=== PATIENT | male | born 1975 | race Two or more races ===

== ENCOUNTER 2024-08-27 16:32 | Inpatient (IN) | payer MEDICAID, OTHER ==
[~2024-08-27] VITALS: Ht 167.6 cm; Wt 118.2 kg
[~2024-08-27 16:32] MED LIST: BUPR150T18 PO; CLON0.5T4 PO; ESCI5TAB PO; LISI-285 PO; PROP80CA PO; QUET100T47 PO
[2024-08-27] MEDS: dilTIAZem 25 MG/5 ML VIAL IV ONE (16:37)
[2024-08-27] MEDS: SODIUM CHLORIDE 0.9% 1,000 ML IV ONE (16:38)
--- NOTE | 2024-08-27 16:43 | ED.PDOC ---
HPI Comments 48y M who presents to the ED for chief complaint of chest pain. Pt states he was driving earlier this afternoon and states he started having chest pain. Pt states he pulled over and took his BP medication, propanolol and went to urgent care as he continued to have chest pain ever after taking his medications. At urgent Care, the patient was noted to be tachycardic, diaphoretic and hypotensive, so was transferred to the ED. Patient localizes the chest pain to the retrosternal area, constant, with no associated exacerbating or relieving factors associated with throbbing palpitations. Pt denies other associated symptoms at this time. He denies any history of cardiac arrhythmia. Chief Complaint: chest pain Time Seen by MD: 16:40 Reviewed Notes: Medications Allergies: Coded Allergies: NO KNOWN ALLERGIES (Unverified , 08/27/24) Information Source: Patient, Spouse Mode of Arrival: Ambulatory Brought in by: spouse Past Medical History PAST MEDICAL HISTORY: HTN Past Medical History (Other): bowel obstruction Surgical History (Other): colostomy Family History Family History: Unknown Social History Smoker: Non-Smoker Alcohol: Denies ETOH Use Drugs: Denies Drug Use Lives In: Home Constitutional: denies: chills, diaphoresis, fatigue, fever, malaise, sweats, weakness, others EENTM: denies: blurred vision, double vision, ear bleeding, ear discharge, ear drainage, ear pain, ear ringing, eye pain, eye redness, hearing loss, mouth pain, mouth swelling, nasal discharge, nose bleeding, nose congestion, nose pain, photophobia, tearing, throat pain, throat swelling, voice changes, others Respiratory: denies: cough, hemoptysis, orthopnea, SOB at rest, shortness of breath, SOB with excertion, stridor, wheezing, others Cardiovascular: reports: chest pain; denies: dizzy spells, diaphoresis, Dyspnea on exertion, edema, irregular heart beat, left arm pain, lightheadedness, palpitations, PND, syncope, others Gastrointestinal: denies: abdomen distended, abdominal pain, blood streaked bowels, constipated, diarrhea, dysphagia, difficulty swallowing, hematemesis, melena, nausea, poor appetite, poor fluid intake, rectal bleeding, rectal pain, vomiting, others Genitourinary: denies: burning, dysuria, flank pain, frequency, hematuria, incontinence, penile discharge, penile sore, pain, testicle pain, testicle swelling, urgency, others Neurological: denies: dizziness, fainting, headache, left sided numbness, left sided weakness, numbness, paresthesia, pre-existing deficit, right sided numbness, right sided weakness, seizure, speech problems, tingling, tremors, weakness, others Musculoskeletal: denies: back pain, gout, joint pain, joint swelling, muscle pain, muscle stiffness, neck pain, others Integumetry: denies: bruises, change in color, change in hair/nails, dryness, laceration, lesions, lumps, rash, wounds, others Allergic/Immunocompromised: denies: Difficulty Healing, Frequent Infections, Hives, Itching, others Hematologic/Lymphatic: denies: anemia, blood clots, easy bleeding, easy bruising, swollen glands, others Endocrine: denies: excessive hunger, excessive sweating, excessive thirst, excessive urination, flushing, intolerance to cold, intolerance to heat, unexplained weight gain, unexplained weight loss, others Psychiatric: denies: anxiety, bipolar disorder, depression, hopeless, panic disorder, schizophrenia, sleepless, suicidal, others All Other Systems: Reviewed and Negative Physical Exam General Appearance: Mild Distress, Obese HEENT: Other (+symmetric, no facial asymmetry, moist mucous membranes) Neck: Full Range of Motion, Normal Inspection Respiratory: Lungs Clear, No Accessory Muscle Use, No Respiratory Distress, Normal Breath Sounds, Other (Tachypneic) Cardiovascular: No Edema, No JVD, Tachycardia Breast Exam: Deferred Gastrointestinal: Non Tender, Soft Genitalia: Deferred Pelvic: Deferred Rectal: Deferred Extremities: Normal inspection, Normal range of motion, Non-tender, No pedal edema Neurologic: Alert (Oriented x4), Normal Affect, Normal Mood, Other (Moves all extremities, no gross focal deficit) Cerebellar Function: NOT DONE Reflexes: NOT DONE Skin: Diaphoresis, Dry, Normal Color Lymphatic: NOT DONE EKG EKG #1: Comments Sinus tach versus SVT, rate 169, normal QRS interval, QTC prolonged at 514, right axis deviation, possible old inferior infarct, no ST/T changes. EKG #2: Comments Sinus rhythm, rate 72, normal RI and QRS intervals, QTC 467, possible old inferior infarct, no ST/T changes. Was a procedure done? Was a procedure done?: No CP Differential Dx Differential Diagnosis: A-fib, A-Flutter, Angina, Anxiety / Panic Attack, Atrial Dysrhythmia, Electrolyte Disorder, IL, PSVT, Pulmonary Embolus Other Differential Diagnosis acute coronary syndrome Differential Diagnosis: CHF Differential Diagnosis: Angina, Chest Wall Pain, Myocardial Infarction, Pericarditis, Pneumonia X-Ray, Labs, Meds, VS Vital Signs Date Time Temp Pulse Resp B/P (MAP) Pulse Ox O2 Delivery O2 Flow Rate FiO2 08/27/24 20:00 57 08/27/24 19:11 96.7 59 11 137/80 (99) 99 96.7 08/27/24 19:11 99 Nasal Cannula* 2 28 08/27/24 17:01 Room Air* 0 21 08/27/24 16:47 72 08/27/24 16:32 169 08/27/24 16:32 96.7 170 18 95/69 (78) 98 Lab Test 08/27/24 19:27 08/27/24 16:35 Range/Units Troponin I High Sensitivity 84 *H 4 </=54 ng/L White Blood Count 14.8 H 4.4-10.8 10^3/uL Red Blood Count 6.07 H 4.5-5.90 10^6/uL Hemoglobin 17.7 H 13.5-17.5 g/dL Hematocrit 52.1 41.0-53.0 % Mean Corpuscular Volume 85.8 80.0-100.0 fL Mean Corpuscular Hemoglobin 29.2 28.0-32.0 pg Mean Corpuscular Hemoglobin Concent 34.0 32.0-36.0 g/dL Red Cell Distribution Width 13.4 11.8-14.3 % Platelet Count 363 140-450 10^3/uL Mean Platelet Volume 9.9 6.9-10.8 fL Neutrophils (%) (Auto) 71.1 37.0-80.0 % Lymphocytes (%) (Auto) 19.9 10.0-50.0 % Monocytes (%) (Auto) 6.6 0.0-12.0 % Eosinophils (%) (Auto) 1.6 0.0-7.0 % Basophils (%) (Auto) 0.8 0.0-2.0 % Neutrophils # (Auto) 10.5 H 1.6-8.6 10 ^3/uL Lymphocytes # (Auto) 2.9 0.4-5.4 10 ^3/uL Monocytes # (Auto) 1.0 0-1.3 10 ^3/uL Eosinophils # (Auto) 0.2 0-0.8 10 ^3/uL Basophils # (Auto) 0.1 0-0.2 10 ^3/uL Nucleated Red Blood Cells 0.8 % Sodium Level 140 136-145 mmol/L Potassium Level 4.1 3.5-5.1 mmol/L Chloride Level 106 98-107 mmol/L Carbon Dioxide Level 23 20-31 mmol/L Anion Gap 11 5-15 Blood Urea Nitrogen 16 9-23 mg/dL Creatinine 0.94 0.700-1.30 mg/dL Glomerular Filtration Rate Calc 101 >90 mL/min BUN/Creatinine Ratio 17.0 10.0-20.0 Serum Glucose 111 H 74-106 mg/dL Calcium Level 10.3 8.7-10.4 mg/dL B-Type Natriuretic Peptide 24.60 0-100 pg/mL Current Medications Medications (Trade) Dose Ordered Sig/Conner Route Start Time Stop Time Status Last Admin Sodium Chloride 1,000 ml @ 1,000 mls/hr Q1H ONCE IV 08/27/24 16:45 08/27/24 17:44 DC 08/27/24 16:38 Diltiazem HCl (Cardizem Injection) 10 mg ONCE ONCE IV 08/27/24 16:45 08/27/24 16:46 DC 08/27/24 16:37 Aspirin 325 mg ONCE ONCE PO 08/27/24 20:30 08/27/24 20:31 MD 08/27/24 20:54 [place] [id number] Ph: [phone] DIAGNOSTIC IMAGING Diagnostic Imaging Report : [id number] Signed PATIENT: LEXY POLOT: [id number] UNIT: [id number] : 1975 LOC: ER ROOM / BED: / AGE / SEX: 48 / M ADM STATUS: REG ER SERVICE [id number] ORDERING PHYSICIAN: LATRICE RODRÍGUEZ MD PROCEDURE(s): CXRP - CHEST PORTABLE REASON: cp ORDER NUMBER(s): [id number], ACCESSION NUMBER(s): [id number] EXAM: XR Chest, 1 View CLINICAL INDICATION: cp TECHNIQUE: Frontal view of the chest. COMPARISON: None FINDINGS: LUNGS AND PLEURAL SPACES: Unremarkable. No consolidation. No pneumothorax. HEART: Unremarkable. No cardiomegaly. MEDIASTINUM: Unremarkable. Normal mediastinal contour. BONES/JOINTS: Unremarkable. No acute fracture. OTHER FINDINGS: . . . IMPRESSION: No acute cardiopulmonary process. HS:Y ATED BY: AARTI MYERS MD DICTATED DATE/TIME: 08/27/241703 SIGNED BY: AARTI MYERS MD SIGNED DATE/TIME: 08/27/241703 CC: X-Ray, Labs, Meds, VS Comment 48-year-old male with a history of hypertension brought in from urgent care where he presented complaining of chest pain, was found to be tachycardic and hypotensive Vitals remarkable for temperature 96.7, heart rate 170, BP 95/69 Exam remarkable for tachycardia and diaphoresis EKG #1 Showed sinus tach versus SVT at a rate of 169, no ST/T changes EKG #2 After IV Cardizem showed sinus rhythm, rate 72, no ST/T changes Chest x-ray unremarkable CBC remarkable for WBC 14.8, hemoglobin 17.7, basic metabolic panel and BNP unremarkable. First troponin negative. Second troponin elevated at 84, 3rd troponin 161. Patient treated with the following in the ED: 1 L 0.9 normal saline IV bolus, Cardizem 10 mg IV, aspirin 325 mg p.o.. Shortly after Cardizem was administered, patient's cardiac rhythm converted to sinus rhythm at a rate in the 70s. At that point he stated his chest pain had resolved. He also notes that he may have forgotten to take his propranolol over the last 2 days. Possibly the tachycardia was a rebound response. Plan is to admit the patient for Cardiology evaluation. Time of 1ST Reevaluation: 17:10 Reevaluation 1ST: Unchanged Time of 2ND Reevaluation: 19:22 Reevaluation 2ND: Improved Patient Education/Counseling: Diagnosis, Treatment Family Education/Counseling: Diagnosis, Treatment Departure 1 Departure Time of Disposition: 19:22 Impression: Primary Impression: Acute chest pain Additional Impressions: Tachycardia Non-STEMI (non-ST elevated myocardial infarction) Disposition: 09 ADMITTED INPATIENT Admit to: Tele Condition: Guarded Critical Care Note Critical Care Time?: Yes (35 min-critical care time only) Critical care comment: Critical care time including multiple bedside re-evaluations, review of lab and imaging studies, and discussion of the case with the admitting provider. Patient is high risk for hemodynamic decompensation. Stability Stability form required: No Heart Score Heart Score: Heart Score Response (Comments) Value History Moderate Suspicious 1 EKG Repolarization Disturb 1 Age 45-64 1 Risk Factors 1 or 2 risk factors 1 Troponin 1-2 x's Normal limit 1 Total 5 I personally scribed for LATRICE RODRÍGUEZ MD ([email or web address]) on 08/27/24 at 16:43. Electronically submitted by Missy Aleman ([email or web address]). I personally scribed for LATRICE RODRÍGUEZ MD ([email or web address]) on 08/27/24 at 17:10. Electronically submitted by Missy Aleman ([facility]). LATRICE RODRÍGUEZ MD Aug 27, 2024 16:43
[2024-08-27 16:48] LABS: Basophils # (auto) 0.1 10 ^3/uL (0-0.2); Basophils % (auto) 0.8 % (0.0-2.0); Eosinophils # (auto) 0.2 10 ^3/uL (0-0.8); Eosinophils % (auto) 1.6 % (0.0-7.0); Hematocrit 52.1 % (41.0-53.0); Hemoglobin 17.7 g/dL (13.5-17.5); Lymphocytes # (auto) 2.9 10 ^3/uL (0.4-5.4); Lymphocytes % (auto) 19.9 % (10.0-50.0); Mean Corpuscular Hemoglobin 29.2 pg (28.0-32.0); Mean Corpuscular Volume 85.8 fL (80.0-100.0); Monocytes % (auto) 6.6 % (0.0-12.0); Neutrophils # (auto) 10.5 10 ^3/uL (1.6-8.6); Neutrophils % (auto) 71.1 % (37.0-80.0); Nucleated Red Blood Cells % 0.8 %; Platelet Count (auto) 363 10^3/uL (140-450); Red Blood Cells 6.07 10^6/uL (4.5-5.90); Red Cell Distribution Width 13.4 % (11.8-14.3); White Blood Cell 14.8 10^3/uL (4.4-10.8)
--- NOTE | 2024-08-27 16:49 | ECG ---
[facility] Test Date: 2024-08-27 Test Time: 16:47:36 Pat Name: SERGIO POLO Department: ER Room: 0279T Gender: M [employer]: BEAU : 1975 Requested By: EMERGENCY EMERGENCY Order Number: [id number] Reading MD: Ronaldo Hicks Measurements Intervals Dillard Rate: 72 P: 35 [place]: 148 QRS: 249 QRSD: 100 T: 19 QT: 426 QTc: 467 Interpretive Statements Sinus rhythm Left anterior fascicular block Consider right ventricular hypertrophy Baseline wander in lead(s) V1 Electronically Signed On 08-29-2024 16:15:48 PST by Ronaldo Hicks Please click the below link to view image of tracing.
[2024-08-27 17:02] LABS: Chloride 106 mmol/L (98-107); Potassium 4.1 mmol/L (3.5-5.1); Sodium 140 mmol/L (136-145)
[2024-08-27 17:03] LABS: Anion Gap 11 (5-15); Calcium 10.3 mg/dL (8.7-10.4); Carbon Dioxide 23 mmol/L (20-31)
--- NOTE | 2024-08-27 17:07 | DVH ---
EXAM: XR Chest, 1 View CLINICAL INDICATION: cp TECHNIQUE: Frontal view of the chest. COMPARISON: None FINDINGS: LUNGS AND PLEURAL SPACES: Unremarkable. No consolidation. No pneumothorax. HEART: Unremarkable. No cardiomegaly. MEDIASTINUM: Unremarkable. Normal mediastinal contour. BONES/JOINTS: Unremarkable. No acute fracture. OTHER FINDINGS: . . . IMPRESSION: No acute cardiopulmonary process. HS:Y
[2024-08-27 17:08] LABS: Blood Urea Nitrogen 16 mg/dL (9-23); Glucose 111 mg/dL (74-106)
[2024-08-27] MEDS: ASPirin 325 MG TAB PO ONE (20:54)
[2024-08-27] MEDS ORDERED: MORPHINE SULFATE INJ 2 MG/ml SYRG IV PRN (21:45)
[2024-08-27] MEDS ORDERED: NITROGLYCERIN 0.4 MG SL TAB SL PRN (21:45)
[2024-08-27 22:40] LABS: Alanine Aminotransferase 55 U/L (7-40); Albumin 4.1 g/dL (3.2-4.8); Alkaline Phosphatase 67 U/L (46-116); Anion Gap 9 (5-15); Aspartate Aminotransferase 26 U/L (13-40); BUN/Creatinine Ratio 14.3 (10.0-20.0); Bilirubin, Total 0.6 mg/dL (0.2-1.0); Blood Alcohol < 3.0 mg/dL (<10); Blood Urea Nitrogen 11 mg/dL (9-23); CRP High Sensitivity 0.71 mg/dL (<1.0); Calcium 9.3 mg/dL (8.7-10.4); Carbon Dioxide 24 mmol/L (20-31); Chloride 109 mmol/L (98-107); Glucose 93 mg/dL (74-106); Potassium 3.7 mmol/L (3.5-5.1); Sodium 142 mmol/L (136-145); Total Protein 6.7 g/dL (5.7-8.2)
[2024-08-27 22:50] LABS: Erythrocyte Sedimentation Rate 2 mm/hr (0-20)
--- NOTE | 2024-08-27 23:31 | DVHPNRES ---
Progress Note Objective vital signs Vital Sign Date Time Temp Pulse Resp B/P (MAP) Pulse Ox O2 Delivery O2 Flow Rate FiO2 08/27/24 20:00 57 08/27/24 19:11 96.7 11 137/80 (99) 99 96.7 08/27/24 19:11 Nasal Cannula* 2 28 medications Current Medications Medications Dose Ordered Sig/Conner Route Start Time Stop Time Status Last Admin Dose Admin Nitroglycerin 0.4 mg Q5MINP PRN SL 08/27/24 21:45 Morphine Sulfate 2 mg Q30M PRN IV 08/27/24 21:45 laboratory and microbiology Laboratory Tests 08/27/24 21:38 08/27/24 16:35 Test 08/27/24 21:38 Range/Units Serum Glucose 93 74-106 mg/dL My Orders My Orders Orders - GREG CEJA Procedure Category Date Status Time Admit ADMIT 08/27/24 Transmitted 21:34 Nitroglycerin PHA 08/27/24 In Process Sublingual (Ntrostat 21:45 Morphine Sulfate PHA 08/27/24 In Process Injection 21:45 Oxygen By Nasal RT 08/27/24 Transmitted Cannula 21:34 Stat Ekg For Chest PAWEL 08/27/24 In Process Pain 21:34 Notify Md Of Changes PAWEL 08/27/24 In Process From Base 21:34 Food Stand Manager For PAWEL 08/27/24 In Process 24 Hours 21:34 Emergency Dysrhythmia [facility] 08/27/24 In Process Protocol 21:34 Rhythm Strips Once PAWEL 08/27/24 In Process Every Shift 21:34 Drug Screen LAB 08/27/24 Logged 21:39 Covid19 Antigen Maddi LAB 08/27/24 Logged Rapid Influenza A&B LAB 08/27/24 Logged 22:01 Echo 2d Mode Cardiac US 08/27/24 Logged DOP 22:04 Complete Blood Count LAB 08/28/24 Verified 04:00 Basic Metabolic Panel LAB 08/28/24 Verified 04:00 Lipid Panel LAB 08/28/24 Verified 04:00 GREG CEJA Aug 27, 2024 23:31
[2024-08-27] MEDS: ACETAMINOPHEN 500 MG TAB PO ONE (23:58)
[2024-08-28 01:41] LABS: Urine Bacteria None Seen /hpf (None Seen); Urine WBC None Seen /hpf (0 - 3)
[2024-08-28 01:48] LABS: Urine Blood Negative /uL (Negative); Urine Clarity Clear (Clear); Urine Color Colorless (Yellow); Urine Protein, UAD Negative (Negative); Urine Specific Gravity 1.006 (1.001-1.035); Urine Urobilinogen Normal (Negative); Urine pH 6.5 (5.0-9.0)
[2024-08-28 01:59] LABS: Amphetamine Screen, Urine Neg (NEGATIVE); Barbiturate Scree,Urine Neg (NEGATIVE); Benzodiazephine Screen, Urine Neg (NEGATIVE); Cannabinoid Screen, Urine Neg (NEGATIVE); Cocaine Screen, Urine Neg (NEGATIVE); Opiate Scree,Urine Neg (NEGATIVE); Phencyclidine Screen, Urine Neg (NEGATIVE)
[2024-08-28 02:18] LABS: COVID19 ANTIGEN SOFIA FIA NEGATIVE (NEGATIVE); Rapid Influenza A Negative (Negative); Rapid Influenza B Negative (Negative)
--- NOTE | 2024-08-28 05:26 | DVHHPRES ---
History of Present Illness Resident Creating Document: GREG CEJA RESIDENT History of Present Illness Mr. Vaca, a 48-year-old gentleman with a medical history of essential hypertension and anxiety, depression, insomnia managed with home propranolol, experienced a sudden onset of sharp, stabbing pain in the left lower chest, rated 10/10, started while he was at rest and came from work around 3:45 p.m., lasting for 2 hours, aggravated by movement and relieved partially by propranolol, radiated to the bilateral shoulder blades and was accompanied by sweating and palpitations. He also reported chest pressure and discomfort with exertion, high levels of anxiety and stress due to a stressful job situation, and a constant fear of losing his job. He denied any similar chest pain in the past, trauma, sick contact, prolonged immobilization, previous history of bleeding or clotting disorders, and fever. He came to the ED for further evaluation of his symptoms and with the initial management his pain subsided. Cardiovascular: HTN Psych: Anxiety, Depression Past Medical History Hypertension on propranolol. Previous history of anxiety but patient did not take any medication despite he was prescribed before. Patient had previous colonoscopy with polypectomy suction but could not give further Details. Past Surgical History: None Family History: Hypertension (In paternal side) Family History Does not have any family history of premature coronary artery disease, st ructural heart disease, sudden cardiac or familial arrhythmia but has history of hypertension in paternal side. Smoke: Quit Occupation: Works as a order department supervisor / driver merchandiser ALCOHOL: occassional Drugs: None Lives: with Family Domestic Violence: Neg Past Social History Patient lives at home with family With adequate support, denies present history of alcohol abuse, smoking/ vaping, recreational drug abuse. Previously during [employer] almost for 2 years had a brief history of 2 pack per day heavy smoking history. Review of Systems Constitutional: No: Fever, Chills, Sweats, Weakness, Malaise, Other Eyes: No: Pain, Vision change, Conjunctivae inflammation, Eyelid inflammation, Other, Redness ENT: No: Ear pain, Ear discharge, Nose pain, Nose discharge, Nose congestion, Mouth pain, Mouth swelling, Throat pain, Throat swelling, Other Respiratory: No: Cough, Dry, Shortness of breath, SOB with excertion, Wheezing, Hemoptysis, Pleuritic Pain, Sputum, Wheezing, Other Cardiovascular: Chest Pain, Palpitations Gastrointestinal: No: Nausea, Vomiting, Abdominal Pain, Diarrhea, Constipation, Melena, Hematochezia, Other Genitourinary: No Dysuria, No Frequency, No Incontinence, No Hematuria, No Retention, No Other Musculoskeletal: No: other, neck pain, shoulder pain, arm pain, back pain, hand pain, leg pain, foot pain Skin: No: Rash, Lesions, Jaundice, Bruising, Other Neurological: No: Weakness, Numbness, Incoordination, Change in speech, Confusion, Seizures, Other Other NKDA, no known food allergy. Allergies: Coded Allergies: NO KNOWN ALLERGIES (Unverified , 08/27/24) Medications Current Medications Medications Dose Ordered Sig/Conner Route Start Time Stop Time Status Last Admin Dose Admin Nitroglycerin 0.4 mg Q5MINP PRN SL 08/27/24 21:45 Morphine Sulfate 2 mg Q30M PRN IV 08/27/24 21:45 Exam Vital Signs Vital Signs Date Time Temp Pulse Resp B/P (MAP) Pulse Ox O2 Delivery O2 Flow Rate FiO2 08/28/24 02:00 52 13 124/52 (76) 93 08/27/24 19:11 96.7 96.7 08/27/24 19:11 Nasal Cannula* 2 28 General Appearance: Alert, Oriented X3, Cooperative, No acute distress HEENT: Atraumatic, PERRLA, EOMI, Mucous membr. moist/pink Respiratory: Clear to auscultation, Normal air movement Cardiovascular: Regular rate, Normal S1, Normal S2, No murmurs, Gallops, Rubs, Other (Patient has musculoskeletal tenderness the left lower side of the chest.) Abdominal: Normal bowel sounds, Soft, No tenderness, No hepatospenomegaly, No masses Extremities: No clubbing, No cyanosis, No edema, Normal pulses, No tenderness/swelling Skin: No rashes, No breakdown, No significant lesion Neuro: Normal gait, Normal speech, Strength at 5/5 X4 ext, Normal tone, Sensation intact, Cranial nerves 3-12 NL Psych/Mental Status: Mental status NL, Other (Mildly anxious affect) Labs/Xrays Labs Test 08/28/24 00:40 08/27/24 22:06 08/27/24 21:38 08/27/24 16:35 Range/Units Urine Color Colorless Yellow Urine Clarity Clear Clear Urine pH 6.5 5.0-9.0 Urine Specific [place] 1.006 1.001-1.035 Urine Protein Negative Negative Urine Ketones Negative Negative Urine Blood Negative Negative /uL Urine Nitrite Negative Negative Urine Bilirubin Negative Negative Urine Urobilinogen Normal Negative mg/dL Urine Leukocyte Esterase Negative Negative /uL Urine RBC 1 0 - 3 /hpf Urine WBC None seen 0 - 3 /hpf Urine Squamous Epithelial Cells None seen <5 /hpf Urine Bacteria None seen None Seen /hpf Urine Glucose Normal Normal mg/dL Urine Opiates Screen Neg NEGATIVE Urine Fentanyl Screen Neg NEGATIVE Urine Barbiturates Screen Neg NEGATIVE Urine Phencyclidine Screen Neg NEGATIVE Urine Amphetamines Screen Neg NEGATIVE Urine Benzodiazepines Screen Neg NEGATIVE Urine Cocaine Screen Neg NEGATIVE Urine Cannabinoids Screen Neg NEGATIVE Influenza Type A Antigen Negative Negative Influenza Type B Antigen Negative Negative SARS-CoV-2 Antigen (Rapid) Negative NEGATIVE Erythrocyte Sedimentation Rate 2 0-20 mm/hr D-Dimer, Quantitative < 0.19 0.0-0.49 mg/L FEU Hemoglobin A1c 5.3 <5.7 % A1C Sodium Level 142 136-145 mmol/L Potassium Level 3.7 3.5-5.1 mmol/L Chloride Level 109 H 98-107 mmol/L Carbon Dioxide Level 24 20-31 mmol/L Anion Gap 9 5-15 Blood Urea Nitrogen 11 9-23 mg/dL Creatinine 0.77 0.700-1.30 mg/dL Glomerular Filtration Rate Calc 111 >90 mL/min BUN/Creatinine Ratio 14.3 10.0-20.0 Serum Glucose 93 74-106 mg/dL Calcium Level 9.3 8.7-10.4 mg/dL Total Bilirubin 0.6 0.2-1.0 mg/dL Aspartate Amino Transferase (AST) 26 13-40 U/L Alanine Aminotransferase (ALT) 55 H 7-40 U/L Alkaline Phosphatase 67 46-116 U/L Troponin I High Sensitivity 161 *H </=54 ng/L C-Reactive Protein High Sensitivity 0.71 <1.0 mg/dL Total Protein 6.7 5.7-8.2 g/dL Albumin 4.1 3.2-4.8 g/dL Thyroid Stimulating Hormone (TSH) 1.20 0.55-4.78 uIU/mL Plasma/Serum Blood Alcohol < 3.0 <10 mg/dL White Blood Count 14.8 H 4.4-10.8 10^3/uL Red Blood Count 6.07 H 4.5-5.90 10^6/uL Hemoglobin 17.7 H 13.5-17.5 g/dL Hematocrit 52.1 41.0-53.0 % Mean Corpuscular Volume 85.8 80.0-100.0 fL Mean Corpuscular Hemoglobin 29.2 28.0-32.0 pg Mean Corpuscular Hemoglobin Concent 34.0 32.0-36.0 g/dL Red Cell Distribution Width 13.4 11.8-14.3 % Platelet Count 363 140-450 10^3/uL Mean Platelet Volume 9.9 6.9-10.8 fL Neutrophils (%) (Auto) 71.1 37.0-80.0 % Lymphocytes (%) (Auto) 19.9 10.0-50.0 % Monocytes (%) (Auto) 6.6 0.0-12.0 % Eosinophils (%) (Auto) 1.6 0.0-7.0 % Basophils (%) (Auto) 0.8 0.0-2.0 % Neutrophils # (Auto) 10.5 H 1.6-8.6 10 ^3/uL Lymphocytes # (Auto) 2.9 0.4-5.4 10 ^3/uL Monocytes # (Auto) 1.0 0-1.3 10 ^3/uL Eosinophils # (Auto) 0.2 0-0.8 10 ^3/uL Basophils # (Auto) 0.1 0-0.2 10 ^3/uL Nucleated Red Blood Cells 0.8 % B-Type Natriuretic Peptide 24.60 0-100 pg/mL [place] [address] Ph: [phone] DIAGNOSTIC IMAGING Diagnostic Imaging Report : [id number] Signed PATIENT: SERGIO VACAACCT: [id number] UNIT: [id number] : 1975 LOC: ER ROOM / BED: / AGE / SEX: 48 / M ADM STATUS: REG ER SERVICE [id number] ORDERING PHYSICIAN: LATRICE RODRÍGUEZ MD PROCEDURE(s): CXRP - CHEST PORTABLE REASON: cp ORDER NUMBER(s): [id number], ACCESSION NUMBER(s): [id number] EXAM: XR Chest, 1 View CLINICAL INDICATION: cp TECHNIQUE: Frontal view of the chest. COMPARISON: None FINDINGS: LUNGS AND PLEURAL SPACES: Unremarkable. No consolidation. No pneumothorax. HEART: Unremarkable. No cardiomegaly. MEDIASTINUM: Unremarkable. Normal mediastinal contour. BONES/JOINTS: Unremarkable. No acute fracture. OTHER FINDINGS: . . . IMPRESSION: No acute cardiopulmonary process. HS:Y ATED BY: AARTI MYERS MD DICTATED DATE/TIME: 08/27/241703 SIGNED BY: AARTI MYERS MD SIGNED DATE/TIME: 08/27/241703 CC: Assessment/Plan Assessment/Plan Assessment: A 48-year-old man with hypertension and anxiety, on propranolol, presented to the ED with sudden, severe left chest reproducible pain for 2 hours radiating to the shoulder blades, associated with sweating and palpitations, and exacerbated by stress and exertion. Plan: #[address]-elevation myocardial infarction (NSTEMI): Could be type 2, demand mediated, low RIO score, came with elevated blood pressure, mildly elevated troponin. No ST-T changes in EKG. Continue atorvastatin aspirin oral and TTE/Echo pending. #2 Chest pain likely due to above: Rate reproducible local tenderness. Patient also has local tenderness left lower frontal chest likely muscle strain, Tylenol as needed, lidocaine patch locally. Broad differentials include coronary, cardiac, pulmonary and musculoskeletal causes. #3 ASCVD risk assessment: Family history of hypertension, obesity, intermittent chest pain with exertion concerning for further risk assessment, follow morning fasting lipid panel. Negative for DM HbA1c 5.3. TSH WNL. ESR CRP negative, unlikely pericarditis is less pleurisy. Given the risk factors consulted Cardiology, we will consider inpatient versus outpatient stress test. #4 Brief smoking history: Prior history of for pack-year smoking: Presently nonsmoker. #5 Obesity grade 3: BMI 42.1, weight loss counseling done. #6 Ruled out STEMI: unremarkable EKG changes, lower levels of troponin and unproportionate symptoms. Remained hemodynamically stable on telemetry overnight. Negative for blood alcohol level and UDS. #7 Community-acquired pneumonia likely due to Gram-negative/Gram-positive: Negative for COVID, influenza. Patient had some chest pain with leukocytosis and predominant neutrophilia. CXR shows some patchy changes. Blood culture and sputum culture to follow up. #8 Unlikely pulmonary embolism/ PE: D-dimer negative, no pertinent history, hemo dynamically stable, breathing in room air, leg swelling or history of coagulopathy. #9 Essential hypertension: Previously patient was prescribed lisinopril/hydrochlorothiazide and propranolol 80 mg, As per aha/ACC guideline nondiabetic blood pressure target should be 140/90 or below. At home patient takes propranolol, would consider starting on amlodipine/Norvasc 5 mg daily, if blood pressure remains elevated. #10 Leukocytosis with neutrophilia: Could be stress related, due to NSTEMI, respiratory or multifactorial. UA unremarkable, no urinary symptoms, chest pain with increased sputum production but no fever. #11 History of known anxiety disorder: anxiety and panic disorder: Prescribed escitalopram 5 mg Patient will likely be benefitted with ongoing stress counseling with a mental health counselor and starting on SSRI. Encouraged further discussion with the primary care physician. #12: Sinus bradycardia: Could be due to earlier Cardizem use, Patient is a healthy gentleman with no known/EKG evident electrical conduction abnormality. Heart rate in 50s likely due to proper conditioning and young age. Patient is asymptomatic denies any lightheadedness, shortness of breath or tiredness, no need of any intervention. #13: Likely has underlying KARENA: STOP-BANG score of 7, Needs outpatient follow up, sleep study and supporting CPAP/BiPAP for positive pressure respiration during sleep. #14: Transient supraventricular tachycardia SVT: Could be due to withdrawal of propranolol 80 mg at home/anxiety related. At the time of presentation patient's heart rate at 170, low blood pressure, IV Cardizem status post patient's heart rate within normal limit. #15: insomnia: Seroquel 50 mg at bedtime., patient does not want to take the medication. #16: Major depressive disorder: bupropion XL 300 mg, #17 medical noncompliance: patient does not want to take anxiety and depression medications. Previously followed with Tee Wagner NP for mental health. PUD prophylaxis: protonix 40mg oral daily, no known history of GERD. DVT prophylaxis: Levonox 40mg sc daily. Barriers to discharge: Medical diagnosis and management in progress. Patient lives with family, spouse. Independent for ADL. PCP: [facility] Fuel Agent: Non established. Case discussed with Dr. Raphael. Code Status: Full Code. Discussion needed total 21 minutes bedside. Plan discussed with: Patient, Other (Primary team, RN) My Orders Orders - GREG CEJA RESIDENT Procedure Category Date Status Time Admit ADMIT 08/27/24 Transmitted 21:34 Nitroglycerin [facility] 08/27/24 In Process Sublingual (Ntrostat 21:45 Morphine Sulfate PHA 08/27/24 In Process Injection 21:45 Oxygen By Nasal RT 08/27/24 Transmitted Cannula 21:34 Stat Ekg For Chest [facility] 08/27/24 In Process Pain 21:34 Notify Md Of Changes [facility] 08/27/24 In Process From Base 21:34 Shop Laborer For [facility] 08/27/24 In Process 24 Hours 21:34 Emergency Dysrhythmia [facility] 08/27/24 In Process Protocol 21:34 Rhythm Strips Once [facility] 08/27/24 In Process Every Shift 21:34 Echo 2d Mode Cardiac US 08/27/24 Logged DOP 22:04 Complete Blood Count LAB 08/28/24 Logged 04:00 Basic Metabolic Panel LAB 08/28/24 Logged 04:00 Lipid Panel LAB 08/28/24 Logged 04:00 Npo (Nothing By DIET 08/28/24 Transmitted Mouth) Diet Breakfast Date of Service: Aug 27, 2024 Billing Provider: ARTI RAPHAEL MD Common Visit Codes: [id number] INP/OBS CARE (HIGH) GREG CEJA RESIDENT Aug 28, 2024 05:26 ARTI RAPHAEL MD Aug 28, 2024 21:30
[2024-08-28] MEDS: ATORVASTATIN 20 MG TAB PO ONE (05:28)
[2024-08-28] MEDS: ENOXAPARIN SOD 40 MG/0.4 ML SYRINGE SC ONE (05:41)
[2024-08-28] MEDS: PANTOPRAZOLE 40 MG TAB PO SCH (05:43)
[2024-08-28 06:18] LABS: Basophils # (auto) 0.1 10 ^3/uL (0-0.2); Basophils % (auto) 0.6 % (0.0-2.0); Eosinophils # (auto) 0.2 10 ^3/uL (0-0.8); Eosinophils % (auto) 1.8 % (0.0-7.0); Hematocrit 47.8 % (41.0-53.0); Hemoglobin 16.4 g/dL (13.5-17.5); Lymphocytes % (auto) 21.1 % (10.0-50.0); Mean Corpuscular Hemoglobin 29.6 pg (28.0-32.0); Mean Corpuscular Hgb Conc. 34.4 g/dL (32.0-36.0); Mean Corpuscular Volume 86.2 fL (80.0-100.0); Monocytes # (auto) 0.6 10 ^3/uL (0-1.3); Monocytes % (auto) 6.4 % (0.0-12.0); Neutrophils # (auto) 6.7 10 ^3/uL (1.6-8.6); Neutrophils % (auto) 70.1 % (37.0-80.0); Nucleated Red Blood Cells % 0.1 %; Platelet Count (auto) 244 10^3/uL (140-450); Red Blood Cells 5.54 10^6/uL (4.5-5.90); Red Cell Distribution Width 13.7 % (11.8-14.3); White Blood Cell 9.6 10^3/uL (4.4-10.8)
[2024-08-28 06:25] LABS: Anion Gap 8 (5-15); Carbon Dioxide 26 mmol/L (20-31); Chloride 108 mmol/L (98-107); Potassium 3.7 mmol/L (3.5-5.1); Sodium 142 mmol/L (136-145)
[2024-08-28 06:26] LABS: Calcium 9.2 mg/dL (8.7-10.4)
[2024-08-28 06:30] LABS: Glucose 90 mg/dL (74-106)
[2024-08-28 06:31] LABS: BUN/Creatinine Ratio 17.1 (10.0-20.0); Blood Urea Nitrogen 13 mg/dL (9-23); LDL Cholesterol 102 mg/dL (< 100); Triglycerides 141 mg/dL (< 150)
[2024-08-28 06:33] LABS: Cholesterol 148 mg/dL (< 200); HDL Cholesterol 35 mg/dL (40-59)
[2024-08-28 08:30] VITALS: PULSE 53; RESP 13; O2SAT 96
[2024-08-28] MEDS: ASPirin 81 mg TAB PO SCH (09:54)
--- NOTE | 2024-08-28 10:29 | DVHPNRES ---
Progress Note Date Seen: Aug 28, 2024 Resident Creating Document: MANUEL SALGADOONISORIN RESIDENT Medical Necessity Reason Pt with a Central, PICC or Fol: No Subjective Review of Systems Patient is a 48 y/o male with a past medical history of Hypertension, generalised anxiety disorder, migraine, insomnia came to the ED with the chief complaint of chest pain that started about 2 hours prior to admission. Patient reports that he went to bring his daughter back from day care and when he came back home, he had sudden onset chest pain explained it as someone sitting on the chest, across the substernum and left side of chest, non radiating, last for about 30-45 mins, has associated shortness of breath, palpitations and profuse sweating. Patient reports having similar chest pain in the past multiple times which he reportedly took his reported blood pressure medication propanolol which relieved the pain during previous episodes but as he felt that the pain was severe this time, patient came to the ED for further evaluation. Initial 12 lead EKG showed elevated heart rate with likely SVT, no acute ischemic ST changes. Troponin levels were trendeding up initially. CBC showed elevated WBC and hemoconcentration with elevated Hgb and Hct. Urine drug screen negative. past medical history: Hypertension, generalised anxiety disorder, migraine, insomnia past surgical history: none reported Social history: patient lives with family and currently vapes, alcohol once a week, denies smoking and illicit drug use. 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 Home medication: propanolol 80mg Qd,clonazepam 0.5mg prn, lisinopril/HCTZ qd was prescribed psycotropic meds but reports not taking them escitalopram 5mg qd, bupropion xl 300mg qd, quetiapine 25mg qd. Review of systems Patient is seen and examined with the bedside. Patient A/O X 4. patient reports mild left sided, dull, non radiating chest pain. reports feeling anxious. denies shortness of breath, palpitations, sweating, nausea, abdominal pain, vomiting.Tele monitor shows sinus bradycardia, with BP 140/80mmg Hg. CXR shows increased bronchovascular markings. Objective vital signs Vital Sign Date Time Temp Pulse Resp B/P (MAP) Pulse Ox O2 Delivery O2 Flow Rate FiO2 08/28/24 08:30 97.9 53 13 141/93 (109) 96 97.9 08/28/24 08:30 Room Air* 0 21 Total Intake and Output 08/27/24 08/27/24 08/28/24 15:00 23:00 07:00 Intake Total 1000 ml Balance 1000 ml medications Current Medications Medications Dose Ordered Sig/Conner Route Start Time Stop Time Status Last Admin Dose Admin Nitroglycerin 0.4 mg Q5MINP PRN SL 08/27/24 21:45 Morphine Sulfate 2 mg Q30M PRN IV 08/27/24 21:45 Aspirin 81 mg DAILY PO 08/28/24 10:00 08/28/24 09:54 81 MG Atorvastatin Calcium 40 mg HS PO 08/28/24 22:00 Pantoprazole Sodium 40 mg BID@0600,1700 PO 08/28/24 06:00 08/28/24 05:43 40 MG Enoxaparin Sodium 40 mg DAILY SC 08/28/24 10:00 UNV Examination Physical Examination Gen - no pallor, no icterus, no cyanosis, no clubbing, no LAD, no edema . Skin - Patients skin is warm and dry. HEENT - normocephalic, atraumatic, moist mucous membranes. Neck - full ROM, no LAD, no JVD Pulmonary - B/L equal breath sounds, no crackles , no wheezing, no stridor. cardiovascular - normal S1,S2 heard. no murmurs heard. peripheral pulses normal radial 2+, pedal 2+. capillary refill normal <2 secs. GI - soft abdomen without tenderness to palpation in the right and the left iliac regions. no tenderness to deep palpation . no hepatospleenomegaly. Neurological - Patient is A/O X 3 . Bilateral upper extremity strength 5/5, bilateral lower extremity strength 5/5, no facial droop, normal speech, no tremor, no sensory deficiets. laboratory and microbiology Laboratory Tests 08/28/24 05:28 Test 08/28/24 05:28 Range/Units Serum Glucose 90 74-106 mg/dL Problem List/Assessment/Plan Problem List/Assessment/Plan Assessment and plan # Acute Chest pain , typical chest pain # NSTEMI type II likely d/t underlying tachycardia # SVT # sinus bradycardia # PE less likely - elevated troponins on admission - repeat troponins in the morning were normal. - d-dimer within normal limits - 12 lead ECG on admission showed SVT with heart rate at 170bpm - patient given diltiazem 10mg IV in the er which controlled her heart rate - given aspirin 325mg and atorvastatin 40mg once - currently on aspirin 81mg and atorvastatin 40mg daily - nitroglycerin prn for chest pain - Cardiac diet - ECHO pending - Cardiology consult- coronary angiogram planned for tomorrow # Generalised anxiety disorder - at home patient takes clonazepam prn , was prescribed escitalopram 5mg once daily but the patient denies currently taking any psychotropic meds. - started on clonazepam 0.5mg prn # ?KARENA - stop bang score 7 - patient reports loud snoring and sleep apneoa - needs further workup in the outpatient dept # H/o Hypertension - currently Blood pressure WNL - Hydralazine prn # Leukocytosis - elevated WBC at admission - currently WNL Goals of care discussed with the patient and the for over 33 mins. Full code Plan discussed with Plan discussed with: Patient, Spouse Date of Service: Aug 28, 2024 Billing Provider: CHIP RUBIO MD Common Visit Codes: [id number] INP/OBS CARE(HIGH) PARVEZ SALGADO RESIDENT Aug 28, 2024 10:29 CHIP RUBIO MD Sep 03, 2024 00:22
--- NOTE | 2024-08-28 11:08 | DVHINCON2 ---
Date Seen: Aug 28, 2024 Referring Physician MD Aaron resident Reason for Consultation unstable angina, NSTEMI History of Present Illness This is a 48-year-old male patient who presents to the emergency room with chief complaint of palpitations, chest pain, and shortness of breath. He reports the symptoms began at approximately 3:45 p.m. yesterday when he was walking into his house after picking up his daughter from preschool. He reports that suddenly he began to feel palpitations and chest pain. He describes the chest pain as unprovoked, constant, pressure-like in nature, and left-sided without radiation. Associated symptoms include shortness of breath. He denies any alleviating or aggravating factors. He states that the chest pain lasted for approximately 45 minutes and was constant. He had family drive him to the emergency room for further evaluation. Initial twelve lead electrocardiogram reveals supraventric ular tachycardia with prolonged QTc interval. While in the emergency room, the patient was given 10 mg IV diltiazem. The patient's heart rate decreased after medication administration. Initial troponin level of 4ng/L with peak level at 161ng/L and down-trend thereafter. Significant past medical history includes hypertension, anxiety, depression, insomnia, and morbid obesity. The patient reports a previous experience like this earlier in November of this year. He states he did not seek any medical attention at that time. He denies any previous cardiac workup. Past Medical History Past medical history reviewed. No other significant than mentioned above. Past Surgical History Denies Family History Family history reviewed. Social History Vapes daily (nicotine- unsure of how much) Denies any illicit drug use Denies any alcohol use Allergies: Coded Allergies: NO KNOWN ALLERGIES (Unverified , 08/27/24) Home Meds Reported Medications Lisinopril & Hydrochlorothiazi (Lisinopril/Hydrochlorothi) 1 Tab Tab, 1 TAB PO DAILY for 90 Days, #90 08/28/24 Clonazepam (Clonazepam) 0.5 Mg Tab, 0.25 MG PO BID PRN for SEVERE ANXIETY for 15 Days, #15 08/28/24 Quetiapine Fumerate (QUETIAPINE FUMARATE) 100 Mg Tab, 1-2 TAB PO HS for 90 Days, #180 08/28/24 Bupropion Hcl (Bupropion Hcl Xl) 150 Mg Tab, 300 MG PO QAM for 90 Days, #90 08/28/24 Escitalopram Oxalate (Lexapro) 5 Mg Tab, 1 TAB PO HS for 30 Days, #30 08/28/24 Propranolol HCl (Propranolol Hydrochloride) 80 Mg Cap, 1 CAP PO HS for 90 Days, #85 08/28/24 Home Meds Home medications reviewed. Current Medications Current Medications Medications (Trade) Dose Ordered Sig/Conner Route PRN Reason Start Time Stop Time Status Last Admin Nitroglycerin (Ntrostat Sublingual) 0.4 mg Q5MINP PRN SL FOR CHEST PAIN 08/27/24 21:45 Morphine Sulfate 2 mg Q30M PRN IV FOR CHEST PAIN 08/27/24 21:45 Aspirin 81 mg DAILY PO 08/28/24 10:00 08/28/24 09:54 Atorvastatin Calcium (Lipitor) 40 mg HS PO 08/28/24 22:00 Pantoprazole Sodium (Protonix Tablet) 40 mg BID@0600,1700 PO 08/28/24 06:00 08/28/24 05:43 Enoxaparin Sodium (Lovenox) 40 mg DAILY SC 08/28/24 10:00 UNV Review of Systems Constitutional: No symptom reported Ears, Nose, & Throat: No symptom reported Eyes: No symptom reported Neurological: No symptoms reported Pulmonary/Respiratory: Shortness of breath Cardiovascular: Palpitations, chest pain Gastrointestinal: No symptom reported Genitourinary: No symptom reported Musculoskeletal: No symptom reported Skin: No symptom reported Psychiatric: No symptom reported Endocrine: No symptom reported Hematologic/Lymphatic: No symptom reported Vital Signs Vital Signs Date Time Temp Pulse Resp B/P (MAP) Pulse Ox O2 Delivery O2 Flow Rate FiO2 08/28/24 08:30 97.9 53 13 141/93 (109) 96 97.9 08/28/24 08:30 Room Air* 0 21 Physical Exam General Appearance: Cooperative. Morbidly obese Pulmonary/Respiratory: Clear, bilateral breaths sounds. Cardiovascular/Chest: Regular rate and rhythm. Peripheral Pulses: 2+ Radial (R). 2+ Radial (L). 2+ Pedal (R). 2+ Pedal (L) Abdominal Exam: Normal bowel sounds. Ankle Exam: Negative ankle edema Lower extremities: Negative lower extremity edema Neuro/Mental Status: A/OX4, coherent. Thoughts/Psych: Normal thought pattern. Appropriate mood and affect. Good judgment and insight. Appearance: No acute distress. Skin Exam: Normal inspection. Normal color. Warm and dry. Labs/Diagnostic Data Labs Test 08/28/24 10:50 08/28/24 05:28 08/28/24 00:40 08/27/24 22:06 Range/Units White Blood Count 9.6 # 4.4-10.8 10^3/uL Red Blood Count 5.54 4.5-5.90 10^6/uL Hemoglobin 16.4 13.5-17.5 g/dL Hematocrit 47.8 41.0-53.0 % Mean Corpuscular Volume 86.2 80.0-100.0 fL Mean Corpuscular Hemoglobin 29.6 28.0-32.0 pg Mean Corpuscular Hemoglobin Concent 34.4 32.0-36.0 g/dL Red Cell Distribution Width 13.7 11.8-14.3 % Platelet Count 244 140-450 10^3/uL Mean Platelet Volume 9.6 6.9-10.8 fL Neutrophils (%) (Auto) 70.1 37.0-80.0 % Lymphocytes (%) (Auto) 21.1 10.0-50.0 % Monocytes (%) (Auto) 6.4 0.0-12.0 % Eosinophils (%) (Auto) 1.8 0.0-7.0 % Basophils (%) (Auto) 0.6 0.0-2.0 % Neutrophils # (Auto) 6.7 1.6-8.6 10 ^3/uL Lymphocytes # (Auto) 2.0 0.4-5.4 10 ^3/uL Monocytes # (Auto) 0.6 0-1.3 10 ^3/uL Eosinophils # (Auto) 0.2 0-0.8 10 ^3/uL Basophils # (Auto) 0.1 0-0.2 10 ^3/uL Nucleated Red Blood Cells 0.1 % Sodium Level 142 136-145 mmol/L Potassium Level 3.7 3.5-5.1 mmol/L Chloride Level 108 H 98-107 mmol/L Carbon Dioxide Level 26 20-31 mmol/L Anion Gap 8 5-15 Blood Urea Nitrogen 13 9-23 mg/dL Creatinine 0.76 0.700-1.30 mg/dL Glomerular Filtration Rate Calc 112 >90 mL/min BUN/Creatinine Ratio 17.1 10.0-20.0 Serum Glucose 90 74-106 mg/dL Calcium Level 9.2 8.7-10.4 mg/dL Triglycerides Level 141 < 150 mg/dL Cholesterol Level 148 < 200 mg/dL LDL Cholesterol 102 H < 100 mg/dL HDL Cholesterol 35 L 40-59 mg/dL Urine Color Colorless Yellow Urine Clarity Clear Clear Urine pH 6.5 5.0-9.0 Urine Specific [place] 1.006 1.001-1.035 Urine Protein Negative Negative Urine Ketones Negative Negative Urine Blood Negative Negative /uL Urine Nitrite Negative Negative Urine Bilirubin Negative Negative Urine Urobilinogen Normal Negative mg/dL Urine Leukocyte Esterase Negative Negative /uL Urine RBC 1 0 - 3 /hpf Urine WBC None seen 0 - 3 /hpf Urine Squamous Epithelial Cells None seen <5 /hpf Urine Bacteria None seen None Seen /hpf Urine Glucose Normal Normal mg/dL Urine Opiates Screen Neg NEGATIVE Urine Fentanyl Screen Neg NEGATIVE Urine Barbiturates Screen Neg NEGATIVE Urine Phencyclidine Screen Neg NEGATIVE Urine Amphetamines Screen Neg NEGATIVE Urine Benzodiazepines Screen Neg NEGATIVE Urine Cocaine Screen Neg NEGATIVE Urine Cannabinoids Screen Neg NEGATIVE Influenza Type A Antigen Negative Negative Influenza Type B Antigen Negative Negative SARS-CoV-2 Antigen (Rapid) Negative NEGATIVE Erythrocyte Sedimentation Rate 2 0-20 mm/hr D-Dimer, Quantitative < 0.19 0.0-0.49 mg/L FEU Hemoglobin A1c 5.3 <5.7 % A1C Test 08/27/24 21:38 08/27/24 16:35 Range/Units Total Bilirubin 0.6 0.2-1.0 mg/dL Aspartate Amino Transferase (AST) 26 13-40 U/L Alanine Aminotransferase (ALT) 55 H 7-40 U/L Alkaline Phosphatase 67 46-116 U/L C-Reactive Protein High Sensitivity 0.71 <1.0 mg/dL Total Protein 6.7 5.7-8.2 g/dL Albumin 4.1 3.2-4.8 g/dL Thyroid Stimulating Hormone (TSH) 1.20 0.55-4.78 uIU/mL Plasma/Serum Blood Alcohol < 3.0 <10 mg/dL B-Type Natriuretic Peptide 24.60 0-100 pg/mL Assessment Chest pain, rule out coronary artery disease Supraventricular tachycardia, resolved NSTEMI likely type II secondary to above Hypertension Hyperlipidemia, newly diagnosed Anxiety Depression Obesity Nicotine use Plan/Recommendation We will continue with the following plan/recommendations (Dr. Cooper): * Echocardiogram to evaluate cardiac function * BP control * Lipid lowering agent * Cardiac surveillance * Risk factor modifications, counseled * Dietary and lifestyle changes Case reviewed and discussed with Dr. Paz. Given the patient's clinical presentation, elevated troponin level, and comorbidities, the patient may benefit from a coronary angiogram with left heart catheterization. The procedure was discussed with the patient full detail including risks and benefits. Risks include but are not limited to bleeding, contrast induced nephropathy, stroke, and even . The patient understands and is agreeable to undergo the procedure. We will schedule the patient at first availability on 08/29/24. Thank you for allowing us to care for this patient. Please call with any questions or concerns. Critical care time spent: 40 minutes This medical document was created using an electronic medical record system with voice recognition software and computerized dictation system. Although this document has been carefully reviewed, there might still be some phonetic and typographical errors. Occasional wrong-word or ``sound-alike substitutions may have occurred due to the inherent limitations of voice recognition software. These areas are purely typographical due to imperfections of the software programs and do not reflect any compromise in the patient's medical care. Please read the chart carefully and recognize, using context, where these substitutions have occurred. Plan discussed with: Patient Date of Service: Aug 28, 2024 Billing Provider: CATHLEEN PAZ MD Cardiology Common Codes: 60230-AVFFQCH INP/OBS CARE (High) Cardiology Consultation Codes: 18930-[id number] CONSULT <45MIN EDMOND CARRANZA Aug 28, 2024 11:08
[2024-08-28] MEDS: ENOXAPARIN SOD 40 MG/0.4 ML SYRINGE SC SCH (11:12)
[2024-08-28] MEDS ORDERED: hydrALAZINE HCL 20 MG/ML VL IV PRN (14:30)
[2024-08-28] MEDS ORDERED: clonazePAM 0.5 MG TAB PO PRN (14:45)
--- NOTE | 2024-08-28 15:05 | ECG ---
[facility] Test Date: 2024-08-27 Test Time: 16:29:28 Pat Name: SERGIO POLO Department: er Room: 0279T Gender: M Curriculum Designer: gp : [id number] Requested By: LATRICE KERN Order Number: [id number] Reading MD: Ronaldo Hicks Measurements Intervals [place] Rate: 169 P: 45 VA: 226 QRS: 238 QRSD: 93 T: 48 QT: 306 QTc: 514 Interpretive Statements Sinus tachycardia Prolonged VA interval Prominent P waves, nondiagnostic Low voltage with right axis deviation Abnormal R-wave progression, late transition Prolonged QT interval Baseline wander in lead(s) I,III,aVL,V1,V2,V3 Electronically Signed On 08-29-2024 16:14:50 PST by Ronaldo Hicks Please click the below link to view image of tracing.
[2024-08-28] MEDS: dilTIAZem 25 MG/5 ML VIAL IV ONE (15:08)
[2024-08-28 16:37] VITALS: PULSE 62; RESP 19; O2SAT 98
[2024-08-28 16:55] VITALS: BP 150/92; PULSE 56; RESP 20; TEMP 98.5; O2SAT 95
[2024-08-28 20:00] VITALS: PULSE 61
[2024-08-28 21:00] VITALS: BP 138/70; PULSE 58; RESP 18; TEMP 98.2; O2SAT 96
[2024-08-28] MEDS: ATORVASTATIN 20 MG TAB PO SCH (21:17)
[2024-08-29] VITALS (13 sets, daily range): BP systolic 124–146; BP diastolic 43–89; PULSE 44–72; RESP 12–24; TEMP 97.3–98.3; O2SAT 94–97
[2024-08-29 07:43] LABS: Basophils # (auto) 0.1 10 ^3/uL (0-0.2); Basophils % (auto) 0.6 % (0.0-2.0); Eosinophils # (auto) 0.2 10 ^3/uL (0-0.8); Eosinophils % (auto) 1.7 % (0.0-7.0); Hematocrit 48.3 % (41.0-53.0); Hemoglobin 16.7 g/dL (13.5-17.5); Lymphocytes % (auto) 20.4 % (10.0-50.0); Mean Corpuscular Hemoglobin 29.5 pg (28.0-32.0); Mean Corpuscular Hgb Conc. 34.5 g/dL (32.0-36.0); Mean Corpuscular Volume 85.6 fL (80.0-100.0); Monocytes # (auto) 0.6 10 ^3/uL (0-1.3); Monocytes % (auto) 6.2 % (0.0-12.0); Neutrophils # (auto) 7.1 10 ^3/uL (1.6-8.6); Neutrophils % (auto) 71.1 % (37.0-80.0); Platelet Count (auto) 270 10^3/uL (140-450); Red Blood Cells 5.64 10^6/uL (4.5-5.90); Red Cell Distribution Width 13.4 % (11.8-14.3); White Blood Cell 9.9 10^3/uL (4.4-10.8)
[2024-08-29 07:55] LABS: Anion Gap 9 (5-15); Carbon Dioxide 25 mmol/L (20-31); Chloride 106 mmol/L (98-107); Potassium 3.8 mmol/L (3.5-5.1); Sodium 140 mmol/L (136-145)
[2024-08-29 07:56] LABS: Calcium 9.7 mg/dL (8.7-10.4)
[2024-08-29 07:58] LABS: INR 1.06 (0.9-1.15); Partial Thromboplastin Time 31.5 SEC (24.5-34.5); Prothrombin Time 11.2 sec (9.3-11.8)
[2024-08-29 08:01] LABS: BUN/Creatinine Ratio 13.8 (10.0-20.0); Blood Urea Nitrogen 12 mg/dL (9-23); Glucose 88 mg/dL (74-106)
[2024-08-29] MEDS: IODIXANOL 320MG/ML 100ML BTL IV ONE (09:00)
[2024-08-29] MEDS: ANGIOMAX 250 MG VIAL IV ONE (09:03)
[2024-08-29] MEDS: SODIUM CHL 0.9% 0 ML ONE (09:04)
[2024-08-29] MEDS: fentaNYL CITRATE 100 MCG/2 ML VL ONE (09:04)
[2024-08-29] MEDS: LIDOCAINE 2%HCL (LOCAL ANESTH.) INJ 20ML MDV ONE (09:04)
[2024-08-29] MEDS: VERAPAMIL 2.5MG/ML INJ 2ML VIAL IV ONE (09:04)
[2024-08-29] MEDS: MIDAZOLAM HCL 2MG/2ML 2ml VIAL (1mg/ml) ONE (09:04)
[2024-08-29] MEDS: HEPARIN SODIUM (PORCINE) 5000 UNITS/ML 1ML VIAL ONE (09:04)
--- NOTE | 2024-08-29 09:48 | DVHOP2 ---
Operative Report -Cardiology Report Details Date: 08/29/24 Preop Diagnosis: Angina pectoralis. Postop Diagnosis: Coronary angiography which revealed mild irregularity of the proximal mid LAD no other significant disease. Patient has elevated left ventricular end-diastolic pressure indicating diastolic heart dysfunction. We will recommend aggressive medical therapy. Surgeon: Eren Pickard MD Anesthesiologist: Conscious sedation using 25 mcg of fentanyl as well as a mg of midazolam. It was given under the direct supervision of the primary vehicle cost engineer in the presence of the attending nurses. Patient was monitored for total of 35 minutes without obvious complication. Anesthesia: Local Consent: The patient was informed of the risks and benefits of the procedure. These include but are not limited to complications of anesthesia, postoperative infection, incomplete relief of symptoms, recurrence of symptoms, damage to blood vessels, nerves and tendons, deep venous thrombosis, pulmonary embolism and possible need for repeat surgery in the future. Indications for Surgery: This is a 48-year-old male patient who presents to the emergency room with chief complaint of palpitations, chest pain, and shortness of breath. He reports the symptoms began at approximately 3:45 p.m. yesterday when he was walking into his house after picking up his daughter from preschool. He reports that suddenly he began to feel palpitations and chest pain. He describes the chest pain as unprovoked, constant, pressure-like in nature, and left-sided without radiation. Associated symptoms include shortness of breath. He denies any alleviating or aggravating factors. He states that the chest pain lasted for approximately 45 minutes and was constant. He had family drive him to the emergency room for further evaluation. Initial twelve lead electrocardiogram reveals supraventricular tachycardia with prolonged QTc interval. While in the emergency room, the patient was given 10 mg IV diltiazem. The patient's heart rate decreased after medication administration. Initial troponin level of 4ng/L with peak level at 161ng/L and down-trend thereafter. Significant past medical history includes hypertension, anxiety, depression, insomnia, and morbid obesity. The patient reports a previous experience like this earlier in November of this year. He states he did not seek any medical attention at that time. He denies any previous cardiac workup. Name of Procedure Performed 1. Left heart catheterization with left ventricular end-diastolic pressure measurement. 2. Selective right and left coronary angiography utilizing right transradial approach. 3. Conscious sedation using 25 mcg fentanyl as well as a mg midazolam. Procedure Details Procedure Details: Procedure note and vascular access: After informed consent was obtained risks, benefits, complications, and alternatives were discussed in details with the patient who agrees to have the procedure done. At the beginning of the procedure the right wrist and right groin area were prepped and draped in the regular sterile fashion before the patient received total of 2 cc of 1% xylocaine to the right wrist area. Patient also received conscious sedation with 25 mcg of fentanyl as well as a mg midazolam. Using modified Seldinger technique were able to place a six Macanese sheath to the right radial artery without complication. Lin right diagnostic catheter as well as advanced the J-tip wire were used to advanced to the aortic root. The patient received cocktail of 2.5 mg of verapamil as well as 100 mcg nitroglycerin prevent arterial vasospasm. Findings were as follows: 1. Left heart catheterization with left ventricular end-diastolic pressure measurement: With the help a tiger five Macanese catheter we were able to measure left ventricular end-diastolic pressure which was elevated at 15 mm of mercury. There was no gradient across the aortic valve on the pullback. 2. Selective right and left coronary angiography utilizing right transradial approach: 1. Left main comes off the left coronary cusp it is widely patent bifurcates into large left anterior descending artery as well as medium-sized left circumflex vessel. Main is free of any significant diseases. 2. Left anterior descending artery is a large system it gives rise to two diagonal branches, it has transapical course, it has mild irregularity at 30-40% the proximal segment but no other significant stenosis was noted. 3. The left circumflex vessel is a medium-sized vessel it gives rise to two obt use marginal branches and has no significant disease. 4. Right coronary artery is a large dominant system it bifurcates distally into large posterior descending artery as well as large posterolateral branch. Was no significant atherosclerotic plaquing noted. Impression plan: 1. We will significant coronary artery disease was noted in the study done today. 2. There is elevated left ventricular end-diastolic pressure indicating underlying diastolic heart dysfunction which need aggressive medical therapy and risk factor modification. 3. Patient would need an echocardiogram to assess left ventricular ejection fraction proceed with goal-directed therapy as indicated. Condition Good CSHA Clinical Frailty Scale CS Clinical Frailty Scale: Very Fit Stress Test Stress Test Performed: No Dominance Dominance: Right Disposition ALHEJILY,WESAM A MD Aug 29, 2024 09:48
--- NOTE | 2024-08-29 13:37 | DVHSR ---
APPROVED REPORT EXAM: LIMITED Two-dimensional and M-mode echocardiogram with Doppler and color Doppler. Blood Pressure: 137/80 mmHg INDICATION Chest Pain RISK FACTORS Obesity: Height: 5' 6", Weight: 260 DIMENSIONS LVDd4.9 (3.8-5.7cm)LA (2D)4.2 (1.9-4.0cm)Aortic Root3.1 (2.0-3.7cm) LVDs3.0 (2.5-4.0cm)LA (MM) (1.9-4.0cm)Aortic Cusp Exc1.5 (1.5-2.0cm) EF (%) 68.0 (55-70%)Rt. Atrium3.5 (1.9-4.0cm)Asc. Aorta cm IVSd1.4 (0.7-1.1cm)RV (D) (1.8-2.4cm) PWd1.2 (0.7-1.1cm) Mitral Valve MitralMitral Stenosis E wave1.10m/sMV Mean GR.mmHg A wave0.80m/sMV Peak GR.mmHg E/A ratio1.42D MVAcm2 Aortic Valve Aortic ValveAortic Stenosis V10.90m/Adriano Mean GR.5mmHg V21.60m/Adriano Peak GR.10mmHg LVOT Diameter2.0 (1.8-2.4cm)Doppler AVA1.77cm2 Pulmonic Valve V20.60m/s Other Information Quality : Technically LimitedRhythm : Technically limited study due to body habitus. Conclusion Normal left ventricular size and dimension. Normal left ventricular systolic function estimated ejec tion fraction 55%. Normal diastolic function. Normal right ventricular size and dimension. Normal right ventricular systolic function. Normal biatrial size and dimension. Normal aortic valve structure and function. Normal mitral valve structure and function. Normal tricuspid valve structure and function. The pulmonary valve is grossly normal. No pericardial effusion.
[2024-08-29] MEDS ORDERED: PANT40TA2 PO (15:31)
[2024-08-29] MEDS ORDERED: AML5T PO (15:31)
[2024-08-29] MEDS ORDERED: ATOR20TA50 PO (15:31)
--- NOTE | 2024-08-29 17:16 | DVHDSRES ---
Discharge Summary Date of Admission Resident Creating Document: PARVEZ SALGADO RESIDENT Aug 27, 2024 at 21:34 Date of Discharge: Aug 29, [address]-elevation myocardial infarction (NSTEMI) Brief smoking history Obesity grade 3 Ruled out STEMI Community-acquired pneumonia likely due to Gram-negative/Gram-positive Unlikely pulmonary embolism/ PE Essential hypertension Leukocytosis with neutrophilia 11 History of known anxiety disorder Likely has underlying KARENA: . Transient supraventricular tachycardia SVT: insomnia: Major depressive disorder: Wounds: no wounds Labs/Diagnostic Data: Laboratory Results Test 08/29/24 06:12 08/28/24 10:50 08/28/24 05:28 08/28/24 00:40 White Blood Count 9.9 10^3/uL (4.4-10.8) Red Blood Count 5.64 10^6/uL (4.5-5.90) Hemoglobin 16.7 g/dL (13.5-17.5) Hematocrit 48.3 % (41.0-53.0) Mean Corpuscular Volume 85.6 fL (80.0-100.0) Mean Corpuscular Hemoglobin 29.5 pg (28.0-32.0) Mean Corpuscular Hemoglobin Concent 34.5 g/dL (32.0-36.0) Red Cell Distribution Width 13.4 % (11.8-14.3) Platelet Count 270 10^3/uL (140-450) Mean Platelet Volume 9.7 fL (6.9-10.8) Neutrophils (%) (Auto) 71.1 % (37.0-80.0) Lymphocytes (%) (Auto) 20.4 % (10.0-50.0) Monocytes (%) (Auto) 6.2 % (0.0-12.0) Eosinophils (%) (Auto) 1.7 % (0.0-7.0) Basophils (%) (Auto) 0.6 % (0.0-2.0) Neutrophils # (Auto) 7.1 10 ^3/uL (1.6-8.6) Lymphocytes # (Auto) 2.0 10 ^3/uL (0.4-5.4) Monocytes # (Auto) 0.6 10 ^3/uL (0-1.3) Eosinophils # (Auto) 0.2 10 ^3/uL (0-0.8) Basophils # (Auto) 0.1 10 ^3/uL (0-0.2) Nucleated Red Blood Cells 0.0 % Prothrombin Time 11.2 sec (9.3-11.8) Prothrombin Time INR 1.06 (0.9-1.15) Activated Partial Thromboplast Time 31.5 SEC (24.5-34.5) Sodium Level 140 mmol/L (136-145) Potassium Level 3.8 mmol/L (3.5-5.1) Chloride Level 106 mmol/L (98-107) Carbon Dioxide Level 25 mmol/L (20-31) Anion Gap 9 (5-15) Blood Urea Nitrogen 12 mg/dL (9-23) Creatinine 0.87 mg/dL (0.700-1.30) Glomerular Filtration Rate Calc 107 mL/min (>90) BUN/Creatinine Ratio 13.8 (10.0-20.0) Serum Glucose 88 mg/dL (74-106) Calcium Level 9.7 mg/dL (8.7-10.4) Troponin I High Sensitivity 30 ng/L (</=54) Magnesium Level 2.3 mg/dL (1.6-2.6) Triglycerides Level 141 mg/dL (< 150) Cholesterol Level 148 mg/dL (< 200) LDL Cholesterol 102 mg/dL (< 100) HDL Cholesterol 35 mg/dL (40-59) Urine Color Colorless (Yellow) Urine Clarity Clear (Clear) Urine pH 6.5 (5.0-9.0) Urine Specific [place] 1.006 (1.001-1.035) Urine Protein Negative (Negative) Urine Ketones Negative (Negative) Urine Blood Negative /uL (Negative) Urine Nitrite Negative (Negative) Urine Bilirubin Negative (Negative) Urine Urobilinogen Normal mg/dL (Negative) Urine Leukocyte Esterase Negative /uL (Negative) Urine RBC 1 /hpf (0 - 3) Urine WBC None seen /hpf (0 - 3) Urine Squamous Epithelial Cells None seen /hpf (<5) Urine Bacteria None seen /hpf (None Seen) Urine Glucose Normal mg/dL (Normal) Urine Opiates Screen Neg (NEGATIVE) Urine Fentanyl Screen Neg (NEGATIVE) Urine Barbiturates Screen Neg (NEGATIVE) Urine Phencyclidine Screen Neg (NEGATIVE) Urine Amphetamines Screen Neg (NEGATIVE) Urine Benzodiazepines Screen Neg (NEGATIVE) Urine Cocaine Screen Neg (NEGATIVE) Urine Cannabinoids Screen Neg (NEGATIVE) Influenza Type A Antigen Negative (Negative) Influenza Type B Antigen Negative (Negative) SARS-CoV-2 Antigen (Rapid) Negative (NEGATIVE) Test 08/27/24 22:06 08/27/24 21:38 08/27/24 16:35 Erythrocyte Sedimentation Rate 2 mm/hr (0-20) D-Dimer, Quantitative < 0.19 mg/L FEU (0.0-0.49) Hemoglobin A1c 5.3 % A1C (<5.7) Total Bilirubin 0.6 mg/dL (0.2-1.0) Aspartate Amino Transferase (AST) 26 U/L (13-40) Alanine Aminotransferase (ALT) 55 U/L (7-40) Alkaline Phosphatase 67 U/L (46-116) C-Reactive Protein High Sensitivity 0.71 mg/dL (<1.0) Total Protein 6.7 g/dL (5.7-8.2) Albumin 4.1 g/dL (3.2-4.8) Thyroid Stimulating Hormone (TSH) 1.20 uIU/mL (0.55-4.78) Plasma/Serum Blood Alcohol < 3.0 mg/dL (<10) B-Type Natriuretic Peptide 24.60 pg/mL (0-100) Other Laboratory Tests 08/29/24 06:12 Brief Hx & Hospital Course: Patient is a 48 y/o male with a past medical history of Hypertension, generalised anxiety disorder, migraine, insomnia came to the ED with the chief complaint of chest pain that started about 2 hours prior to admission. Patient reports that he went to bring his daughter back from day care and when he came back home, he had sudden onset chest pain explained it as someone sitting on the chest, across the substernum and left side of chest, non radiating, last for about 30-45 mins, has associated shortness of breath, palpitations and profuse sweating. Patient reports having similar chest pain in the past multiple times which he reportedly took his reported blood pressure medication propanolol which relieved the pain during previous episodes but as he felt that the pain was severe this time, patient came to the ED for further evaluation. Initial 12 lead EKG showed elevated heart rate with likely SVT, no acute ischemic ST changes. Troponin levels were trendeding up initially. CBC showed elevated WBC and hemoconcentration with elevated Hgb and Hct. Urine drug screen negative. past medical history: Hypertension, generalised anxiety disorder, migraine, insomnia past surgical history: none reported Social history: patient lives with family and currently vapes, alcohol once a week, denies smoking and illicit drug use. 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 Home medication: propanolol 80mg Qd,clonazepam 0.5mg prn, lisinopril/HCTZ qd was prescribed psycotropic meds but reports not taking them escitalopram 5mg qd, bupropion xl 300mg qd, quetiapine 25mg qd. Hospital course On admission patient had tachycardia and ECG showed SVT and was given diltiazem 10 mg IV once in the ED. patient's heart rate was controlled. Cardiology were consulted who assessed the patient and given the patient's clinical presentation, elevated troponin level, comorbidities they recommended patient may benefit from a coronary angiogram with left heart catheterization. Procedure was discussed with the patient and family in full detail including risks and benefits. Patient agreed to the procedure and underwent a coronary angiogram with left heart catheterization on 08/29/2024. Coronary angiogram showed no significant coronary artery disease, elevated LVEDP indicating diastolic dysfunction which need aggressive medical therapy and risk factor modification. Echocardiogram was done which showed normal LVEF 55%, normal diastolic function. Patient was stabilized and sent back to the [facility] floor. No events noted on telemetry. Patient was discharged in stable condition advised to follow up in cardiology outpatient clinic and his PCP. Review of systems Patient is seen and examined with the bedside. Patient A/O X 4. patient does not report chest pain. reports feeling anxious. denies shortness of breath, palpitations, sweating, nausea, abdominal pain, vomiting. Physical Examination Gen - no pallor, no icterus, no cyanosis, no clubbing, no LAD, no edema . Skin - Patients skin is warm and dry. HEENT - normocephalic, atraumatic, moist mucous membranes. Neck - full ROM, no LAD, no JVD Pulmonary - B/L equal breath sounds, no crackles , no wheezing, no stridor. cardiovascular - normal S1,S2 heard. no murmurs heard. peripheral pulses normal radial 2+, pedal 2+. capillary refill normal <2 secs. GI - soft abdomen without tenderness to palpation . no hepatospleenomegaly. Bowel sounds normoactive Neurological - Patient is A/O X 3 . Bilateral upper extremity strength 5/5, bilateral lower extremity strength 5/5, no facial droop, normal speech, no tremor, no sensory deficiets. Discharge plan Advised to follow up with the PCP in 1 week and follow up with Cardiology in 4 weeks. Follow up in the discharge clinic in 1 week Medications- amlodipine 5 mg once daily, atorvastatin 40 mg once daily, pantoprazole 40 mg once daily. Advised to continue on home medication Consults/Reason for consult cardiology consultation for chest pain Operations or Procedures Operative Report -Cardiology Report Details Date: 08/29/24 Preop Diagnosis: Angina pectoralis. Postop Diagnosis: Coronary angiography which revealed mild irregularity of the proximal mid LAD no other significant disease. Patient has elevated left ventricular end-diastolic pressure indicating diastolic heart dysfunction. We will recommend aggressive medical therapy. Surgeon: Eren Pickard MD Anesthesiologist: Conscious sedation using 25 mcg of fentanyl as well as a mg of midazolam. It was given under the direct supervision of the primary waste management specialist in the presence of the attending nurses. Patient was monitored for total of 35 minutes without obvious complication. Anesthesia: Local Consent: The patient was informed of the risks and benefits of the procedure. These include but are not limited to complications of anesthesia, postoperative infection, incomplete relief of symptoms, recurrence of symptoms, damage to blood vessels, nerves and tendons, deep venous thrombosis, pulmonary embolism and possible need for repeat surgery in the future. Indications for Surgery: This is a 48-year-old male patient who presents to the emergency room with chief complaint of palpitations, chest pain, and shortness of breath. He reports the symptoms began at approximately 3:45 p.m. yesterday when he was walking into his house after picking up his daughter from preschool. He reports that suddenly he began to feel palpitations and chest pain. He describes the chest pain as unprovoked, constant, pressure-like in nature, and left-sided without radiation. Associated symptoms include shortness of breath. He denies any alleviating or aggravating factors. He states that the chest pain lasted for approximately 45 minutes and was constant. He had family drive him to the emergency room for further evaluation. Initial twelve lead electrocardiogram reveals supraventricular tachycardia with prolonged QTc interval. While in the emergency room, the patient was given 10 mg IV diltiazem. The patient's heart rate decreased after medication administration. Initial troponin level of 4ng/L with peak level at 161ng/L and down-trend thereafter. Significant past medical history includes hypertension, anxiety, depression, insomnia, and morbid obesity. The patient reports a previous experience like this earlier in November of this year. He states he did not seek any medical attention at that time. He denies any previous cardiac workup. Name of Procedure Performed 1. Left heart catheterization with left ventricular end-diastolic pressure measurement. 2. Selective right and left coronary angiography utilizing right transradial approach. 3. Conscious sedation using 25 mcg fentanyl as well as a mg midazolam. Procedure Details Procedure Details: Procedure note and vascular access: After informed consent was obtained risks, benefits, complications, and alternatives were discussed in details with the patient who agrees to have the procedure done. At the beginning of the procedure the right wrist and right groin area were prepped and draped in the regular sterile fashion before the patient received total of 2 cc of 1% xylocaine to the right wrist area. Patient also received conscious sedation with 25 mcg of fentanyl as well as a mg midazolam. Using modified Seldinger technique were able to place a six [place] sheath to the right radial artery without complication. Lin right diagnostic catheter as well as advanced the J-tip wire were used to advanced to the aortic root. The patient received cocktail of 2.5 mg of verapamil as well as 100 mcg nitroglycerin prevent arterial vasospasm. Findings were as follows: 1. Left heart catheterization with left ventricular end-diastolic pressure measurement: With the help a tiger five [place] catheter we were able to measure left ventricular end-diastolic pressure which was elevated at 15 mm of mercury. There was no gradient across the aortic valve on the pullback. 2. Selective right and left coronary angiography utilizing right transradial approach: 1. Left main comes off the left coronary cusp it is widely patent bifurcates into large left anterior descending artery as well as medium-sized left circumflex vessel. Main is free of any significant diseases. 2. Left anterior descending artery is a large system it gives rise to two diagonal branches, it has transapical course, it has mild irregularity at 30-40% the proximal segment but no other significant stenosis was noted. 3. The left circumflex vessel is a medium-sized vessel it gives rise to two obtuse marginal branches and has no significant disease. 4. Right coronary artery is a large dominant system it bifurcates distally into large posterior descending artery as well as large posterolateral branch. Was no significant atherosclerotic plaquing noted. Impression plan: 1. We will significant coronary artery disease was noted in the study done today. 2. There is elevated left ventricular end-diastolic pressure indicating underlying diastolic heart dysfunction which need aggressive medical therapy and risk factor modification. 3. Patient would need an echocardiogram to assess left ventricular ejection fraction proceed with goal-directed therapy as indicated. Condition Good [facility] Clinical Frailty Scale [facility] Clinical Frailty Scale: Very Fit Stress Test Stress Test Performed: No Dominance Dominance: Right EREN PICKARD MD Echo reported Normal left ventricular size and dimension. Normal left ventricular systolic function estimated ejection fraction 55%. Normal diastolic function. Normal right ventricular size and dimension. Normal right ventricular systolic function. Normal biatrial size and dimension. Normal aortic valve structure and function. Normal mitral valve structure and function. Normal tricuspid valve structure and function. The pulmonary valve is grossly normal. No pericardial effusion. Condition at Discharge: Good Final Diagnosis/Problems List # Acute Chest pain ,ACS ruled out # NSTEMI type II likely d/t underlying tachycardia # SVT # sinus bradycardia # PE less likely # Generalised anxiety disorder # ?KARENA, needs further workup # GERD # H/o Hypertension # Leukocytosis, resolved Discharge Disposition: Home Discharge Instruct/Medications Diet: Cardiac 2g Na,low cholest Activity: No Restrictions, As Tolerated Follow Up/Referral: Follow up in the discharge clinic in one week Follow up with the PCP in one week for further workup os KARENA Medications: as per EMR Discharge Statement: "Patient was advised to return to the ER or call 911 if any headaches, dizziness, shortness of breath, chest pain, abdominal pain, bleeding, fevers, or worsening of medical condition. Patient was counseled about treatment plan, medications, possible side effects, patientverbalized understanding. All questions were answered to the best of my ability. This discharge took greater then 30 minutes in planning, reviewing documentation, counseling the patient, and discussing with other team members." ASSESSMENT ASSESSMENT Assessment # Acute Chest pain ,ACS ruled out # NSTEMI type II likely d/t underlying tachycardia # SVT # sinus bradycardia # PE less likely # Generalised anxiety disorder # ?KARENA, needs further workup # GERD # H/o Hypertension # Leukocytosis, resolved Date of Service: Aug 29, 2024 Billing Provider: CHIP RUBIO MD Common Visit Codes: 18571-BHP/OBS DISCH DAY >30min PARVEZ SALGADO RESIDENT Aug 29, 2024 17:16 CHIP RUBIO MD Sep 02, 2024 23:45
== END 2024-08-29 17:26 | disposition home or self-care (01) | DRG 192 ==
LOC: ER 16:34 → TELE 21:34 → TELE-WESTW 08-28 16:20
PROVIDERS: ADMIT Student in an Organized Health Care Education/Training Program; ATTEND Student in an Organized Health Care Education/Training Program
PROC: 4A023N7 Measurement of Cardiac Sampling and Pressure, Left Heart, Percutaneous Approach (ICD-10-PCS; principal; 2024-08-29)
PROC: B211YZZ Fluoroscopy of Multiple Coronary Arteries using Other Contrast (ICD-10-PCS; 2024-08-29)
DX: I47.10 Supraventricular tachycardia, unspecified (principal); I21.A1 Myocardial infarction type 2; I10 Essential (primary) hypertension; Z20.822 Contact with and (suspected) exposure to COVID-19; E66.9 Obesity, unspecified; F32.9 Major depressive disorder, single episode, unspecified; F41.1 Generalized anxiety disorder; D72.829 Elevated white blood cell count, unspecified; G47.33 Obstructive sleep apnea (adult) (pediatric); K21.9 Gastro-esophageal reflux disease without esophagitis; E78.5 Hyperlipidemia, unspecified; F17.290 Nicotine dependence, other tobacco product, uncomplicated; Z93.3 Colostomy status; Z68.41 Body mass index [BMI] 40.0-44.9, adult; Z91.199 Patient's noncompliance with other medical treatment and regimen due to unspecified reason
CPT/HCPCS: 36415; 71045; 80048; 80053; 80061; 80307; 80320; 81001; 83036; 83735; 83880; 84443; 84484; 85025; 85379; 85610; 85652; 85730; 86141; 86850; 86900; 86901; 87040; 87426; 87804; 93005; 93306; 93458; 99152; 99291; G0378; J2250; Q9967